=== PATIENT | female | born 1965 | race Caucasian/White ===

== ENCOUNTER 2017-11-23 17:37 | Outpatient (REF) | payer BC, SELFPAY ==
--- NOTE | 2017-11-23 14:45 | PAPFT_PTH ---
PATIENT: Aminta Rich LOC: [facility]#:[id number] AGE/SX: 52/F ROOM: RE11/23/[address]: Jim Mustafa : 1965 BED: DIS: 11/23/2017 SPEC #: [id number] RECD: 11/24/17 13:08 STATUS: OSCAR REElver #: [id number] MAURICE: 11/23/17 14:[address]: Jim Mustafa DEPT: [facility] Cytology RECD BY: Marley Martini ENTERED: 11/24/17 13:08 SP TYPE: PAPFT OTHR DR: Nasim Graham Tissues: 1 - CX/ENDOCX FOR PAP SMEARS Procedures: PAP THIN PREP/[facility] Screening HPV DNA PROBE Comments: [id number]
== END 2017-11-23 17:57 ==
LOC: NCHCN 17:37
PROVIDERS: PCP Internal Medicine; Visit Provider Family Medicine
DX: Z12.4 Encounter for screening for malignant neoplasm of cervix (principal); Z11.51 Encounter for screening for human papillomavirus (HPV); Z00.00 Encounter for general adult medical examination without abnormal findings
CPT/HCPCS: 88142; 87624

== ENCOUNTER 2018-06-05 15:27 | Outpatient (REF) | payer BC, SELFPAY ==
[2018-06-05 21:29] LABS: Anion Gap 10.3 mmol/L (3-11); BUN 13 mg/dL (7-18); CO2 29.7 mmol/L (21.0-32.0); Calcium 11.2 mg/dL (8.5-10.1); Chloride 103 mmol/L (98-107); Glucose 86 mg/dL (70-100); Potassium 4.1 mmol/L (3.5-5.1); Sodium 143 mmol/L (136-145)
== END 2018-06-05 15:47 ==
LOC: NCHCN 15:27
PROVIDERS: PCP Internal Medicine; Visit Provider Family Medicine
DX: I10 Essential (primary) hypertension (principal)
CPT/HCPCS: 80048

== ENCOUNTER 2018-06-19 15:03 | Outpatient (REF) | payer BC, SELFPAY ==
[2018-06-19 21:53] LABS: ALT 24 U/L (12-78); AST 10 U/L (15-37); Albumin 4.1 g/dL (3.4-5.0); Alkaline Phosphatase 113 U/L (46-116); Anion Gap 13.1 mmol/L (3-11); BUN 9 mg/dL (7-18); Bilirubin, Total 0.4 mg/dL (0.2-1.0); CO2 25.9 mmol/L (21.0-32.0); CREATININE 0.88 mg/dL (0.55-1.02); Calcium 10.5 mg/dL (8.5-10.1); Chloride 103 mmol/L (98-107); Glucose 97 mg/dL (70-100); Sodium 142 mmol/L (136-145); Total Protein 7.2 g/dL (6.4-8.2)
[2018-06-19 22:14] LABS: Vitamin D 25 Total 14.4 ng/ml (30-100)
[2018-06-21 12:04] LABS: Parathyroid Hormone,Intact 130 pg/ml (19-88)
== END 2018-06-19 15:23 ==
LOC: NCHCN 15:03
PROVIDERS: PCP Internal Medicine; Visit Provider Family Medicine
DX: E83.52 Hypercalcemia (principal); I10 Essential (primary) hypertension
CPT/HCPCS: 80053; 82306; 83970

== ENCOUNTER 2018-08-29 10:32 | Outpatient (REF) | payer BC, SELFPAY ==
[2018-08-29 22:08] LABS: Anion Gap 11.8 mmol/L (3-11); BUN 10 mg/dL (7-18); CO2 27.2 mmol/L (21.0-32.0); CREATININE 0.77 mg/dL (0.55-1.02); Calcium 10.5 mg/dL (8.5-10.1); Chloride 104 mmol/L (98-107); Glucose 86 mg/dL (70-100); Potassium 4.1 mmol/L (3.5-5.1); Sodium 143 mmol/L (136-145)
== END 2018-08-29 10:52 ==
LOC: NCHCN 10:32
PROVIDERS: PCP Internal Medicine; Visit Provider Family Medicine
DX: E55.9 Vitamin D deficiency, unspecified (principal); E83.52 Hypercalcemia
CPT/HCPCS: 80048; 82306

== ENCOUNTER 2018-12-15 08:20 | Outpatient (REF) | payer BC, SELFPAY ==
[2018-12-15 21:58] LABS: ALT 27 U/L (14-59); AST 20 U/L (15-37); Albumin 4.1 g/dL (3.4-5.0); Alkaline Phosphatase 107 U/L (46-116); Anion Gap 8.9 mmol/L (3-11); BUN 12 mg/dL (7-18); Bilirubin, Total 0.3 mg/dL (0.2-1.0); CO2 28.1 mmol/L (21.0-32.0); CREATININE 0.81 mg/dL (0.55-1.02); Calcium 10.4 mg/dL (8.5-10.1); Calculated LDL 177 mg/dL; Chloride 105 mmol/L (98-107); Cholesterol 253 mg/dL (50-200); Glucose 81 mg/dL (70-100); HDL Cholesterol 46 mg/dL (40-60); Potassium 3.9 mmol/L (3.5-5.1); Sodium 142 mmol/L (136-145); Total Protein 7.4 g/dL (6.4-8.2); Triglyceride 151 mg/dL (30-150)
[2018-12-18 12:53] LABS: Parathyroid Hormone,Intact 78 pg/ml (19-88)
== END 2018-12-15 08:40 ==
LOC: NCHCN 08:20
PROVIDERS: PCP Internal Medicine; Visit Provider Family Medicine
DX: Z00.00 Encounter for general adult medical examination without abnormal findings (principal); E78.5 Hyperlipidemia, unspecified; E55.9 Vitamin D deficiency, unspecified; E83.52 Hypercalcemia; E66.9 Obesity, unspecified
CPT/HCPCS: 80053; 80061; 82306; 83970

== ENCOUNTER 2019-04-03 14:30 | Outpatient (REF) | payer BC, SELFPAY ==
[2019-04-03 21:24] LABS: Anion Gap 6.5 mmol/L (3-11); BUN 16 mg/dL (7-18); CO2 32.5 mmol/L (21.0-32.0); CREATININE 1.27 mg/dL (0.55-1.02); Calcium 8.9 mg/dL (8.5-10.1); Chloride 101 mmol/L (98-107); Estimated GFR 44.19 (mL/min/1.73m2); Glucose 253 mg/dL (74-106); Sodium 140 mmol/L (136-145)
[2019-04-05 04:44] LABS: Vitamin D 25 Total 16.8 ng/ml (30-100)
== END 2019-04-03 14:50 ==
LOC: NCHCN 14:30
PROVIDERS: PCP Internal Medicine; Visit Provider Family Medicine
DX: E55.9 Vitamin D deficiency, unspecified (principal); E83.52 Hypercalcemia
CPT/HCPCS: 80048; 82306

== ENCOUNTER 2019-04-23 08:46 | Outpatient (REF) | payer BC, SELFPAY ==
[2019-04-23 21:47] LABS: Anion Gap 8.9 mmol/L (3-11); BUN 14 mg/dL (7-18); CO2 28.1 mmol/L (21.0-32.0); CREATININE 0.69 mg/dL (0.55-1.02); Calcium 10.1 mg/dL (8.5-10.1); Chloride 106 mmol/L (98-107); Glucose 88 mg/dL (74-106); Potassium 4.4 mmol/L (3.5-5.1); Sodium 143 mmol/L (136-145)
[2019-04-23 21:56] LABS: Hemoglobin A1C 5.5 % (3.8-5.6)
== END 2019-04-23 09:06 ==
LOC: NCHCN 08:46
PROVIDERS: PCP Family Medicine; Visit Provider Family Medicine
DX: R73.9 Hyperglycemia, unspecified (principal); R79.89 Other specified abnormal findings of blood chemistry
CPT/HCPCS: 80048; 83036

== ENCOUNTER 2020-09-09 10:32 | Outpatient (REF) | payer BC, SELFPAY ==
--- NOTE | 2020-09-09 10:00 | PAPFT_PTH ---
PATIENT: Aminta Rich LOC: [facility] U#:[id number] AGE/SX: 55/F ROOM: RE09/09/[address]: Jim Mustafa : 1965 BED: DIS: 09/09/2020 SPEC #: [id number] RECD: 09/09/20 13:12 STATUS: OSCAR REElver #: [id number] MAURICE: 09/09/20 10:[address]: Jim Mustafa DEPT: [facility] Cytology RECD BY: Marley Martini Tissues: 1 - CX/ENDOCX FOR PAP SMEARS Procedures: PAP THIN PREP/[facility] Screening HPV DNA PROBE Comments: [id number]
[2020-09-09 14:11] LABS: Anion Gap 11.5 mmol/L (3-11); BUN 10 mg/dL (7-18); CO2 24.5 mmol/L (21.0-32.0); CREATININE 0.7 mg/dL (0.55-1.02); Calcium 10.6 mg/dL (8.5-10.1); Calculated LDL 168 mg/dL (<100); Chloride 107 mmol/L (98-107); Cholesterol 246 mg/dL (<200); Glucose 99 mg/dL (74-106); HDL Cholesterol 44 mg/dL (40-60); Potassium 3.6 mmol/L (3.5-5.1); Sodium 143 mmol/L (136-145); Triglyceride 173 mg/dL (<150)
[2020-09-11 00:51] LABS: Vitamin D 25 Total 63.6 ng/mL (30-100)
== END 2020-09-09 10:33 | disposition home or self-care (01) ==
LOC: NCHCN 10:32
PROVIDERS: PCP Family Medicine; Visit Provider Family Medicine
DX: Z12.4 Encounter for screening for malignant neoplasm of cervix (principal); Z11.51 Encounter for screening for human papillomavirus (HPV); Z00.00 Encounter for general adult medical examination without abnormal findings; E78.5 Hyperlipidemia, unspecified; I10 Essential (primary) hypertension; E55.9 Vitamin D deficiency, unspecified
CPT/HCPCS: 80048; 80061; 82306; 88142; 87624

== ENCOUNTER 2021-10-01 17:12 | Outpatient (REF) | payer BC, SELFPAY ==
[2021-10-01 21:20] LABS: Anion Gap 10.9 mmol/L (3-11); BUN 16 mg/dL (7-18); CO2 26.1 mmol/L (21.0-32.0); CREATININE 0.8 mg/dL (0.55-1.02); Calcium 11.1 mg/dL (8.5-10.1); Calculated LDL 200 mg/dL (<100); Chloride 104 mmol/L (98-107); Cholesterol 284 mg/dL (<200); Glucose 95 mg/dL (74-106); HDL Cholesterol 52 mg/dL (40-60); Potassium 3.8 mmol/L (3.5-5.1); Sodium 141 mmol/L (136-145); Triglyceride 164 mg/dL (<150)
[2021-10-05 05:54] LABS: Vitamin D 25 Total 58.1 ng/mL (30-100)
== END 2021-10-01 17:13 | disposition home or self-care (01) ==
LOC: NCHCN 17:12
PROVIDERS: PCP Family Medicine; Visit Provider Family Medicine
DX: E55.9 Vitamin D deficiency, unspecified (principal); Z00.00 Encounter for general adult medical examination without abnormal findings; E78.5 Hyperlipidemia, unspecified; I10 Essential (primary) hypertension
CPT/HCPCS: 80048; 80061; 82306

== ENCOUNTER 2024-05-08 15:27 | Outpatient (REF) | payer BC, SELFPAY ==
[2024-05-08 15:30] LABS: ALT 25 U/L (14-59); AST 19 U/L (15-37); Albumin 3.9 g/dL (3.4-5.0); Alkaline Phosphatase 114 U/L (46-116); Anion Gap 6.6 mmol/L (3-11); BUN 11 mg/dL (7-18); Bilirubin, Total 0.35 mg/dL (0.2-1.0); CO2 30.4 mmol/L (21.0-32.0); CREATININE 0.8 mg/dL (0.55-1.02); Calcium 10.9 mg/dL (8.5-10.1); Calculated LDL 183 mg/dL (<100); Chloride 107 mmol/L (98-107); Cholesterol 270 mg/dL (<200); Estimated GFR 85.89 (mL/min/1.73m2); Glucose 99 mg/dL (74-106); HDL Cholesterol 55 mg/dL (40-60); Potassium 3.8 mmol/L (3.5-5.1); Sodium 144 mmol/L (136-145); Total Protein 7.6 g/dL (6.4-8.2); Triglyceride 161 mg/dL (<150)
[2024-05-08 15:56] LABS: Hemoglobin A1C 5.5 % (<5.7)
== END 2024-05-08 15:28 | disposition home or self-care (01) ==
LOC: NCHCN 15:27
PROVIDERS: PCP Family Medicine; Visit Provider Family Medicine
DX: Z00.00 Encounter for general adult medical examination without abnormal findings (principal); E66.3 Overweight
CPT/HCPCS: 80053; 80061; 83036